=== PATIENT | female | born 1995 | race Two or more races ===

== ENCOUNTER 2024-10-08 17:07 | Emergency (ER) | payer MEDICAID ==
[~2024-10-08] VITALS: Ht 157.5 cm; Wt 63.5 kg
[2024-10-08 17:13] VITALS: O2SAT 98
== END 2024-10-08 20:09 | disposition left against medical advice (07) ==
LOC: ER 17:17
DX: Z04.2 Encounter for examination and observation following work accident (principal); Z53.21 Procedure and treatment not carried out due to patient leaving prior to being seen by health care provider
CPT/HCPCS: A4606; A4663